=== PATIENT | female | born 1940 | race Caucasian/White ===

== ENCOUNTER 2016-11-29 12:11 | Emergency (ER) | payer OTHER ==
[~2016-11-29] VITALS: Ht 162.6 cm; Wt 76.0 kg
[~2016-11-29 12:11] MED LIST: ASPI81CH PO; CART120C PO; FLEC1TAB8 PO; TRAM50TA PO
[2016-11-29 12:15] VITALS: BP 179/82; PULSE 62; RESP 16; TEMP 98.3; O2SAT 97
[2016-11-29 12:42] LABS: BLOOD, URINE LARGE (NEG); GLUCOSE,URINE NEG (NEG); KETONE, URINE NEG (NEG); NITRITE,URINE NEG (NEG)
[2016-11-29 12:47] LABS: METHOD OF COLLECTION CLEAN CATCH; URINE COLOR LIGHT-BROWN (YELLW/STRAW)
[2016-11-29 12:49] LABS: COMMENT (UR) CULTURE INDICATED; CULTURE IF INDICATED CULTURE INDICATED; RBC, URINE INNUM /hpf (0-3); SQUAMOUS EPITHELIAL CELL URINE 0-5 /hpf (0-5)
[2016-11-29] MEDS ORDERED: PRIL20TA2 PO (13:05)
--- NOTE | 2016-11-29 13:34 | PD ---
HPI Chief Complaint: Flank/Kidney Pain Time Seen by Provider: 13:15 Travel History International Travel<30 days: No Contact w/Intl Traveler<30days: No Traveled to known affect area: No History of Present Illness HPI The patient was seen and examined in the presence of the nurse. She complains of right flank pain. It radiates toward her right lower quadrant. Duration 2 days. Severity is moderate. No vomiting or diarrhea or fever. She's had kidney stone in the past. She has no dysuria. She has had complete abdominal hysterectomy and appendectomy per her report. No alleviating factors. PFSH Past Medical History Atrial Fibrillation: Yes Kidney Stones: Yes (Lithotripsy ) Tetanus Vaccination: Unknown Influenza Vaccination: No ?: Not Past Surgical History Hysterectomy: Yes Joint Replacement: Yes (BL knees) Social History Alcohol Use: No Tobacco Use: No Substance Use: No Allergies-Medications (Allergen,Severity, Reaction): Coded Allergies: Codeine (Verified Allergy, Severe, Hives, 11/29/16) Penicillin (Verified Allergy, Severe, Anaphylaxis, 11/29/16) Sulfa (Verified Allergy, Severe, Swelling, 11/29/16) Reported Meds & Prescriptions Reported Meds & Active Scripts Active Reported Prilosec (Omeprazole Magnesium) 20 Mg Tab 1 Tab PO DAILY Cartia Xt (Diltiazem ER 24 HR) 120 Mg Caper 120 Mg PO DAILY Aspirin 81 Mg Chew 2 Tab PO DAILY Flecainide (Flecainide Acetate) 50 Mg Tab 50 Mg PO BID Review of Systems General / Constitutional: No: Fever Eyes: No: Visual changes HENT: No: Headaches Cardiovascular: No: Chest Pain or Discomfort Respiratory: No: Shortness of Breath Gastrointestinal: No: Abdominal Pain Genitourinary: Positive: Flank Pain, No: Dysuria Musculoskeletal: No: Pain Skin: No Rash Neurologic: No: Weakness Psychiatric: No: Depression Endocrine: No: Polydipsia Hematologic/Lymphatic: No: Easy Bruising Physical Exam Narrative GENERAL: Well-nourished, well-developed patient with right flank pain . SKIN: Focused skin assessment reveals no rash and nodules. Skin is Warm and dry. HEAD: Atraumatic. Normocephalic. EYES: Pupils equal and round. No scleral icterus. No injection or drainage. ENT: No nasal bleeding or discharge. Mucous membranes pink and moist. NECK: Trachea midline. No JVD. CARDIOVASCULAR: Regular rate and rhythm. No murmur appreciated. RESPIRATORY: No accessory muscle use. Clear to auscultation. Breath sounds equal bilaterally. GASTROINTESTINAL: Abdomen soft, non-tender, nondistended. Hepatic and splenic margins not palpable. MUSCULOSKELETAL: No obvious deformities. No clubbing. No cyanosis. No edema. NEUROLOGICAL: Awake and alert. No obvious cranial nerve deficits. Motor grossly within normal limits. Normal speech. PSYCHIATRIC: Appropriate mood and affect; insight and judgment normal. Data Data Last Documented VS Vital Signs Date Time Temp Pulse Resp B/P Pulse Ox O2 Delivery O2 Flow Rate FiO2 11/29/16 12:15 98.3 62 16 179/82 97 Room Air Orders Urinalysis - C+S If Indicated (11/29/16 12:22) Urine Culture (11/29/16 12:36) Ct Abd/Pel W/O Iv Contrast (11/29/16 ) Ondansetron Inj (Zofran Inj) (11/29/16 13:45) Morphine Inj (Morphine Inj) (11/29/16 13:45) Labs Laboratory Tests Test 11/29/16 12:36 Urine Collection Type CLEAN CATCH Urine Color LIGHT-BROWN Urine Turbidity CLOUDY Urine pH 6.0 Urine Specific [place] 1.019 Urine Protein 30 mg/dL Urine Glucose (UA) NEG mg/dL Urine Ketones NEG mg/dL Urine Occult Blood LARGE Urine Nitrite NEG Urine Bilirubin NEG Urine Leukocyte Esterase TRACE Urine RBC INNUM /hpf Urine WBC 9-14 /hpf Urine Squamous Epithelial 0-5 /hpf Cells Microscopic Urinalysis Comment CULTURE INDICATED MDM Medical Decision Making Medical Screen Exam Complete: Yes Emergency Medical Condition: Yes Medical Record Reviewed: Yes Differential Diagnosis Kidney stone, colitis, ileus, renal mass Narrative Course I have reviewed the patient's electronic medical record. Urinalysis shows innumerable red cells CT abdomen and pelvis shows a 5 mm right sided distal ureteral stone with hydronephrosis I gave her morphine and Zofran injection On reassessment she feels much better Recommending urology follow-up I wrote her Flomax and Percocet and Zofran Diagnosis Primary Impression: Kidney stone on right side Additional Instructions: The patient was advised to follow up with urologist and return if they worsen. The patient was warned about potential sedation for the medications they will receive on prescription. Med/Other Pt SpecificInfo: Prescription(s) given Scripts Tamsulosin (Flomax)0.4 Mg Cap0.4 Mg PO HS #10 CAP Ref 0 Prov:Maxime Zhu MD 11/29/16 Ondansetron (Zofran)4 Mg Tab4 Mg PO Q6HR PRN (NAUSEA OR VOMITING) #15 TAB Ref 0 Prov:Maxime Zhu MD 11/29/16 Oxycodone-Acetaminophen (Percocet)5-325 mg Tab1 Tab PO Q6H PRN (PAIN) #25 TAB Ref 0 Prov:Maxime Zhu MD 11/29/16 Disposition: 01 DISCHARGE HOME Condition: Stable Maxime Zhu MD Nov 29, 2016 13:34
[2016-11-29] MEDS ORDERED: MORPHINE SULFATE 8 MG/ML INJ IM ONE (13:45)
[2016-11-29] MEDS ORDERED: ONDANSETRON HCL 4 MG/2 ML VIAL IM ONE (13:45)
--- NOTE | 2016-11-29 14:05 | RADRPT ---
EXAM DATE/TIME: 11/29/2016 13:42 [facility] COMPARISON: No previous studies available for comparison. INDICATIONS : Right flank pain. ORAL CONTRAST: No oral contrast ingested. RADIATION DOSE: 24.01 CTDIvol (mGy) MEDICAL HISTORY : Renal calculi. SURGICAL HISTORY : Hysterectomy. ENCOUNTER: Initial ACUITY: 1 day PAIN SCALE: 8/10 LOCATION: Right flank TECHNIQUE: Volumetric scanning of the abdomen and pelvis was performed. Using automated exposure control and adjustment of the mA and/or kV according to patient size, radiation dose was kept as low as reasonably achievable to obtain optimal diagnostic quality images. DICOM format image data is av ailable electronically for review and comparison. FINDINGS: CT Abdomen: The liver, spleen, pancreas, left kidney, adrenals are unremarkable. There is no evidence for any appreciable pathological adenopathy, free fluid, or bowel obstruction. The gallbladder demo nstrates multiple stones without gallbladder wall thickening, or pericholecystic fluid. Small hiatal hernia is seen. There is significant hydronephrosis and the right kidney due to an approximate 5 mm d istal ureteral stone. CT pelvis: There is no evidence for mass, abscess formation, or any significant adenopathy within the pelvis. There are scattered diverticuli mainly in the sigmoid colon without definite signs of divert iculitis. CONCLUSION: 1. Significant hydronephrosis right kidney due to an approximate 5 mm distal ureteral stone. 2. Cholelithiasis. Miracle Sood MD on November 29, 2016 at 13:58 Board Certified Radiologist. This report was verified electronically.
[2016-11-29] MEDS ORDERED: TAMS5CAP PO (14:53)
[2016-11-29] MEDS ORDERED: PERC5TAB12 PO (14:53)
[2016-11-29] MEDS ORDERED: ZOFR4TAB PO (14:53)
[2016-11-29 15:15] VITALS: BP 168/72; PULSE 63; RESP 14; O2SAT 98
== END 2016-11-29 15:30 | disposition home or self-care (01) ==
LOC: PHED 12:11
DX: N20.0 Calculus of kidney (principal); Z87.442 Personal history of urinary calculi; Z86.79 Personal history of other diseases of the circulatory system
CPT/HCPCS: 74176; 81001; 87086; 96372; 99285; J2270; J2405

== ENCOUNTER 2016-12-10 16:22 | Emergency (ER) | payer OTHER ==
[~2016-12-10] VITALS: Ht 162.6 cm; Wt 78.0 kg
[~2016-12-10 16:22] MED LIST changes: +PERC5TAB12 PO; +PRIL20TA2 PO; +TAMS5CAP PO; -TRAM50TA PO; +ZOFR4TAB PO
[2016-12-10 17:17] VITALS: BP 160/77; PULSE 86; RESP 17; TEMP 97.8; O2SAT 95
[2016-12-10] MEDS ORDERED: ZOLO25TA PO (17:24)
[2016-12-10] MEDS ORDERED: SODIUM CHLOR 0.9% 1000 ML INJ 1,000 ML IV SCH (18:13)
[2016-12-10] MEDS ORDERED: SODIUM CHLORIDE 0.9% FLUSH 10 ML FLUSH IV FLUSH PRN (18:15)
--- NOTE | 2016-12-10 18:22 | PD ---
HPI Chief Complaint: Abdominal Pain Time Seen by Provider: 18:13 Travel History International Travel<30 days: No Contact w/Intl Traveler<30days: No Traveled to known affect area: No History of Present Illness HPI Patient is a 76-year-old female who presents to emergency room with complaints of abdominal pain. Patient reports that she was seen in emergency room on November 29, 2016 was diagnosed with a 5 mm distal right ureteral stone. Patient reports that she was seen by Dr. Unger and was brought to the OR on Tuesday as she had a ureteroscope with basket retrieval of a kidney stone. Patient reports that since then, she has been passing blood through her urine. Patient reports that she has been having cramping pains to her lower abdomen for the past 2 days. Denies n/v. Denies constipation or diarrhea. Patient denies dysuria, urinary urgency or frequency. Reports no fevers or chills. No other c/o PFSH Past Medical History Atrial Fibrillation: Yes Diminished Hearing: Yes Kidney Stones: Yes (Lithotripsy ) Immunizations Current: Yes Tetanus Vaccination: > 5 Years Influenza Vaccination: No Past Surgical History Genitourinary Surgery: Yes (lithotripsy) Hysterectomy: Yes Joint Replacement: Yes (BL knees) Social History Alcohol Use: No Tobacco Use: No Substance Use: No Allergies-Medications (Allergen,Severity, Reaction): Coded Allergies: Codeine (Verified Allergy, Severe, Hives, 12/10/16) Penicillin (Verified Allergy, Severe, Anaphylaxis, 12/10/16) Sulfa (Verified Allergy, Severe, Swelling, 12/10/16) Reported Meds & Prescriptions Reported Meds & Active Scripts Active Levaquin (Levofloxacin) 750 Mg Tablet 750 Mg PO DAILY 5 Days Zofran (Ondansetron HCl) 4 Mg Tab 4 Mg PO Q6HR PRN Percocet (Oxycodone-Acetaminophen) 5-325 mg Tab 1 Tab PO Q6H PRN Reported Zoloft (Sertraline HCl) 25 Mg Tab 25 Mg PO DAILY Prilosec (Omeprazole Magnesium) 20 Mg Tab 1 Tab PO DAILY Cartia Xt (Diltiazem ER 24 HR) 120 Mg Caper 120 Mg PO DAILY Aspirin 81 Mg Chew 2 Tab PO DAILY Flecainide (Flecainide Acetate) 50 Mg Tab 50 Mg PO BID Review of Systems General / Constitutional: No: Fever Eyes: No: Visual changes HENT: No: Headaches Cardiovascular: No: Chest Pain or Discomfort Respiratory: No: Shortness of Breath Gastrointestinal: Positive: Abdominal Pain, No: Nausea, Vomiting Genitourinary: Positive: Hematuria, No: Urgency, Frequency, Dysuria Musculoskeletal: No: Pain Skin: No Rash Neurologic: No: Weakness Psychiatric: No: Depression Endocrine: No: Polydipsia Hematologic/Lymphatic: No: Easy Bruising Physical Exam Narrative GENERAL: Mild distress SKIN: Focused skin assessment warm/dry. HEAD: Atraumatic. Normocephalic. EYES: Pupils equal and round. No scleral icterus. No injection or drainage. ENT: No nasal bleeding or discharge. Mucous membranes pink and moist. NECK: Trachea midline. No JVD. CARDIOVASCULAR: Regular rate and rhythm. No murmur appreciated. RESPIRATORY: No accessory muscle use. Clear to auscultation. Breath sounds equal bilaterally. GASTROINTESTINAL: Abdomen soft, mildly tender to lower abdomen, nondistended. Hepatic and splenic margins not palpable. MUSCULOSKELETAL: No obvious deformities. No clubbing. No cyanosis. No edema. NEUROLOGICAL: Awake and alert. No obvious cranial nerve deficits. Motor grossly within normal limits. Normal speech. PSYCHIATRIC: Appropriate mood and affect; insight and judgment normal. Data Data Last Documented VS Vital Signs Date Time Temp Pulse Resp B/P Pulse Ox O2 Delivery O2 Flow Rate FiO2 12/10/16 20:11 98.3 82 18 177/93 97 Room Air Orders Complete Blood Count With Diff (12/10/16 17:59) Comprehensive Metabolic Panel (12/10/16 17:59) Prothrombin Time / Inr (Pt) (12/10/16 17:59) Act Partial Throm Time (Ptt) (12/10/16 17:59) Urinalysis - C+S If Indicated (12/10/16 17:59) Iv Access Insert/Monitor (12/10/16 17:59) Ecg Monitoring (12/10/16 17:59) Oximetry (12/10/16 17:59) Sodium Chlor 0.9% 1000 Ml Inj (Ns 1000 M (12/10/16 18:13) Sodium Chloride 0.9% Flush (Ns Flush) (12/10/16 18:15) Urine Culture (12/10/16 18:17) Ct Abd/Pel W Iv Contrast(Rout) (12/10/16 18:55) Levofloxacin 750 Mg Premix Inj (Levaquin (12/10/16 19:00) Iohexol 350 Inj (Omnipaque 350 Inj) (12/10/16 19:27) Labs Laboratory Tests Test 12/10/16 18:17 White Blood Count 7.1 TH/MM3 Red Blood Count 3.89 MIL/MM3 Hemoglobin 12.0 GM/DL Hematocrit 35.5 % Mean Corpuscular Volume 91.4 FL Mean Corpuscular Hemoglobin 30.8 PG Mean Corpuscular Hemoglobin 33.7 % Concent Red Cell Distribution Width 12.5 % Platelet Count 274 TH/MM3 Mean Platelet Volume 7.5 FL Neutrophils (%) (Auto) 61.3 % Lymphocytes (%) (Auto) 22.6 % Monocytes (%) (Auto) 8.1 % Eosinophils (%) (Auto) 4.0 % Basophils (%) (Auto) 4.0 % Neutrophils # (Auto) 4.3 TH/MM3 Lymphocytes # (Auto) 1.6 TH/MM3 Monocytes # (Auto) 0.6 TH/MM3 Eosinophils # (Auto) 0.3 TH/MM3 Basophils # (Auto) 0.3 TH/MM3 CBC Comment DIFF FINAL Differential Comment Prothrombin Time 11.3 SEC Prothromb Time International 1.0 RATIO Ratio Activated Partial 24.5 SEC Thromboplast Time Urine Color YELLOW Urine Turbidity CLEAR Urine pH 6.5 Urine Specific [place] 1.016 Urine Protein TRACE mg/dL Urine Glucose (UA) NEG mg/dL Urine Ketones NEG mg/dL Urine Occult Blood LARGE Urine Nitrite NEG Urine Bilirubin NEG Urine Leukocyte Esterase TRACE Urine RBC 25-49 /hpf Urine WBC 9-14 /hpf Urine Squamous Epithelial 6-8 /hpf Cells Urine Bacteria RARE /hpf Microscopic Urinalysis Comment CULTURE INDICATED Sodium Level 142 MEQ/L Potassium Level 3.7 MEQ/L Chloride Level 109 MEQ/L Carbon Dioxide Level 25.1 MEQ/L Anion Gap 8 MEQ/L Blood Urea Nitrogen 14 MG/DL Creatinine 0.78 MG/DL Estimat Glomerular Filtration 71 ML/MIN Rate Random Glucose 97 MG/DL Calcium Level 8.9 MG/DL Total Bilirubin 0.6 MG/DL Aspartate Amino Transf 20 U/L (AST/SGOT) Alanine Aminotransferase 15 U/L (ALT/SGPT) Alkaline Phosphatase 102 U/L Total Protein 7.0 GM/DL Albumin 3.6 GM/DL [facility] Medical Decision Making Medical Screen Exam Complete: Yes Emergency Medical Condition: Yes Interpretation(s) Vital Signs Date Time Temp Pulse Resp B/P Pulse Ox O2 Delivery O2 Flow Rate FiO2 12/10/16 17:17 97.8 86 17 160/77 95 Differential Diagnosis Differential includes kidney stone, appendicitis, cystitis, electrolyte abnormality, gastroenteritis Narrative Course Patient is a 76-year-old female who presents to ER with complaints of lower abdominal pain for the past 2 days. Reports that she is s/p lithotripsy and stone retrieval by Dr. Unger on Tuesday. No fever/chills. Reports intermittent nausea with no vomiting. Patient also complains of hematuria, no urinary urgency or frequency or dysuria. Patient comfortable at this time, plan to obtain labs, ua and ct of abdomen and pelvis Vital Signs Date Time Temp Pulse Resp B/P Pulse Ox O2 Delivery O2 Flow Rate FiO2 12/10/16 17:17 97.8 86 17 160/77 95 CBC & BMP Diagram 12/10/16 18:17 UA: positive for large occult blood, trace leuk esterase, 25-49rbc, 9-14wbc, rare bacteria - UC pending. Patient was given a dose of IV levaquin for treatment of UTI BMP: bun/cr 14/0.78 CT pending Last Impressions Abdomen/Pelvis CT 12/10/16 1855 Signed Impressions: Service Date/Time: Saturday, December 10, 2016 19:24 - CONCLUSION: 1. Persistent moderate right-sided hydronephrosis with trace air in the right renal collecting system likely from recent instrumentation. Right ureter remains dilated into the pelvis where there is some increased density within the lumen, possibly hemorrhage. Previous right ureteral calculus no longer visualized. No left- sided obstructive uropathy. Feng Morgan MD CT of the abdomen and pelvis shows persistent moderate right-sided hydronephrosis with trace air in the right renal collecting system likely from recent instrumentation. Right ureter remains dilated into the pelvis with her some increased density within the lumen, possibly hemorrhage. The previous ureteral calculus is no longer visualized, there is no left-sided obstructive uropathy. There is also small hiatal hernia as well as a gastric diverticulum measuring 5.7 cm in diameter. All findings including incidental findings reviewed with patient in detail. I did provide patient with a copy of her CAT scan report. Reviewing all labs and studies patient, patient with most likely UTI. Patient is stable for discharge with outpatient follow up. She will follow up with all cultures from today. She will follow up with her urologist as well as pcp and will return to ER as needed. Signs and symptoms of when to return to the emergency room was reviewed patient in detail. Diagnosis Primary Impression: Abdominal pain Qualified Code: R10.30 - Lower abdominal pain Additional Impression: UTI (urinary tract infection) Qualified Code: N30.01 - Acute cystitis with hematuria Patient Instructions: General Instructions Additional Instructions: Please provide patient with a copy of her lab work and studies at discharge Please follow up with your urologist Please follow up with all cultures from today Please take all medications as prescribed Return to ER as needed Return to ER if symptoms worsen or progress Please drink plenty of fluids Med/Other Pt SpecificInfo: Prescription(s) given Scripts Levofloxacin (Levaquin)750 Mg [id number] Mg PO DAILY 5 Days Ref 0 Prov:Maris Madden DO 12/10/16 Disposition: 01 DISCHARGE HOME Condition: Stable Maris Madden DO Dec 10, 2016 18:22
[2016-12-10 18:26] LABS: AUTOMATED NEUTROPHIL # 4.3 TH/MM3 (1.8-7.7); BASOPHIL # 0.3 TH/MM3 (0-0.2); EOSINOPHIL # 0.3 TH/MM3 (0-0.4); HEMATOCRIT 35.5 % (35.0-46.0); HEMO FLAGS DIFF FINAL; LYMPH % 22.6 % (9.0-44.0); LYMPHOCYTE # 1.6 TH/MM3 (1.0-4.8); MEAN CELL VOLUME 91.4 FL (80.0-100.0); MEAN CORPUSCULAR HEMOGLOBIN 30.8 PG (27.0-34.0); MEAN CORPUSCULAR HGB CONC 33.7 % (32.0-36.0); MONO % 8.1 % (0.0-8.0); NEUT % 61.3 % (16.0-70.0); PLATELET COUNT 274 TH/MM3 (150-450); RED BLOOD COUNT 3.89 MIL/MM3 (4.00-5.30); RED CELL DISTRIBUTION WIDTH 12.5 % (11.6-17.2); WHITE BLOOD COUNT 7.1 TH/MM3 (4.0-11.0)
[2016-12-10 18:27] LABS: BLOOD, URINE LARGE (NEG); GLUCOSE,URINE NEG (NEG); KETONE, URINE NEG (NEG); NITRITE,URINE NEG (NEG); PH, URINE 6.5 (5.0-8.5)
[2016-12-10 18:31] LABS: URINE COLOR YELLOW (YELLW/STRAW)
[2016-12-10 18:33] LABS: BACTERIA, URINE RARE /hpf; CHLORIDE 109 MEQ/L (98-107); POTASSIUM 3.7 MEQ/L (3.5-5.1); SODIUM (NA) 142 MEQ/L (136-145)
[2016-12-10 18:34] LABS: COMMENT (UR) CULTURE INDICATED; CULTURE IF INDICATED CULTURE INDICATED
[2016-12-10 18:37] LABS: ANION GAP 8 MEQ/L (5-15); BICARBONATE 25.1 MEQ/L (21.0-32.0); BLOOD UREA NITROGEN 14 MG/DL (7-18)
[2016-12-10 18:39] LABS: APTT (PATIENT) 24.5 SEC (24.3-30.1); PROTHROMBIN TIME - PATIENT 11.3 SEC (9.8-11.6)
[2016-12-10 18:40] LABS: ALT (GPT) 15 U/L (10-53); AST (GOT) 20 U/L (15-37); GLOMERULAR FILTRATION RATE 71 ML/MIN (>89)
[2016-12-10 18:41] LABS: TOTAL BILIRUBIN ADULT 0.6 MG/DL (0.2-1.0)
[2016-12-10 18:43] LABS: ALKALINE PHOSPHATASE 102 U/L (45-117)
[2016-12-10] MEDS ORDERED: LEVOFLOXACIN 750 MG PREMIX INJ 150 ML IV ONE (19:00)
[2016-12-10] MEDS ORDERED: LEVA750T9 PO (19:15)
[2016-12-10] MEDS ORDERED: IOHEXOL 350 MG/ML 10 ML VIAL (for RAD DIAG) IV ONE (19:27)
--- NOTE | 2016-12-10 19:57 | RADRPT ---
EXAM DATE/TIME: 12/10/2016 19:24 [facility] COMPARISON: CT ABDOMEN & PELVIS W/O CONTRAST, November 29, 2016, 13:42. INDICATIONS : Ureteroscope last week. Lower abdominal pain and hematuria ever since. IV CONTRAST: 95 cc Omnipaque 350 (iohexol) IV ORAL CONTRAST: No oral contrast ingested. RADIATION DOSE: 13.97 CTDIvol (mGy) MEDICAL HISTORY : Renal calculi. SURGICAL HISTORY : Hysterectomy. Lithotripsy. ENCOUNTER: Initial ACUITY: 1 week PAIN SCALE: 7/10 LOCATION: Bilateral lower quadrant TECHNIQUE: Volumetric scanning of the abdomen and pelvis was performed. Using automated exposure control and ad justment of the mA and/or kV according to patient size, radiation dose was kept as low as reasonably achievable to obtain optimal diagnostic quality images. DICOM format image data is available electro nically for review and comparison. FINDINGS: Comparison is November 29. Previous calculus in the distal right ureter measuring 5 mm in diameter is no longer visualized. There is some density in the distal right ureter which could represent some hemorr rubén. There is still moderate right-sided hydronephrosis. There is trace air in the right renal colle cting system likely related to recent instrumentation. Small right renal cyst left kidney unremarkabl e without hydronephrosis. There is a small hiatal hernia. There is also gastric diverticulum measuring about 5.7 cm in diameter . Spleen, liver, adrenals and pancreas unremarkable. There is colonic diverticulosis without diverticulitis. There is a small fat containing umbilical her [place]. CONCLUSION: 1. Persistent moderate right-sided hydronephrosis with trace air in the right renal collecting system likely from recent instrumentation. Right ureter remains dilated into the pelvis where there is some increased density within the lumen, possibly hemorrhage. Previous right ureteral calculus no longer visualized. No left-sided obstructive uropathy. Feng Morgan MD on December 10, 2016 at 19:48 Board Certified Radiologist. This report was verified electronically.
[2016-12-10 20:11] VITALS: BP 177/93; PULSE 82; RESP 18; TEMP 98.3; O2SAT 97
[2016-12-10] MEDS ORDERED: MACR100C2 PO (20:51)
[2016-12-10 21:36] VITALS: BP 168/94
== END 2016-12-10 21:39 | disposition home or self-care (01) ==
LOC: PHED 16:22
DX: N30.01 Acute cystitis with hematuria (principal); B96.89 Other specified bacterial agents as the cause of diseases classified elsewhere
CPT/HCPCS: 74177; 80053; 81001; 85025; 85610; 85730; 87086; 96361; 96365; 96366; 99285; J1956; J7030; Q9967